=== PATIENT | female | born 1950 | race Caucasian/White ===

== ENCOUNTER 2023-11-22 16:31 | Emergency (ER) | payer MEDICARE, OTHER, SELFPAY ==
--- NOTE | ~2023-11-22 | CT_ITS ---
EXAMINATION: CT CERVICAL SPINE WITHOUT CONTRAST CLINICAL INFORMATION: Fall COMPARISON: None available. TECHNIQUE: Axial images through the cervical spine without IV contrast. Sagittal and coronal reconstructions on the technologist workstation This CT examination was performed using dose optimization techniques as appropriate, variously including the following: *Automated exposure control *Adjustment of mA and/or kV according to patient size (this includes techniques or standardized protocols for targeted exams where dose is matched to indication/reason for exam; i.e. extremities or head) *Use of iterative reconstruction technique DLP: 218 mGy-cm FINDINGS: Bone alignment is normal. No fracture or dislocation. Degenerative spondylosis and degenerative disc disease from C3-C4 to C7 T1. Bilateral facet arthritis. Prevertebral soft tissues are normal. Visualized lung bases are clear. CT/CT cervical spine wo IV con IMPRESSION: Degenerative changes. No fracture or dislocation. Fleischner guidelines were followed.
--- NOTE | ~2023-11-22 | CT_ITS ---
EXAMINATION: CT HEAD WITHOUT CONTRAST CLINICAL INFORMATION: Fall with frontal head strike. COMPARISON: None available. TECHNIQUE: Contiguous axial imaging was performed from the skull base to vertex without intravenous administration of contrast. This CT examination was performed using dose optimization techniques as appropriate, variously including the following: *Automated exposure control *Adjustment of mA and/or kV according to patient size (this includes techniques or standardized protocols for targeted exams where dose is matched to indication/reason for exam; i.e. extremities or head) *Use of iterative reconstruction technique DLP: 592 mGy-cm FINDINGS: There is no intracranial hemorrhage. There is no evidence of acute/subacute cerebral or cerebellar infarction. There is no midline shift or mass effect. No extra-axial fluid collection. No hydrocephalus. The right ocular lens is surgically absent. The orbits are otherwise unremarkable. The calvarium is intact. The visualized paranasal sinuses and mastoid air cells are well aerated. CT/CT head/brain wo IV con IMPRESSION: No acute intracranial pathology.
--- NOTE | ~2023-11-22 | CT_ITS ---
EXAMINATION: CT FACIAL BONES WITHOUT CONTRAST CLINICAL INFORMATION: Fall with face strike. COMPARISON: None available. TECHNIQUE: Computed tomography of the facial bones was performed without contrast. This CT examination was performed using dose optimization techniques as appropriate, variously including the following: *Automated exposure control *Adjustment of mA and/or kV according to patient size (this includes techniques or standardized protocols for targeted exams where dose is matched to indication/reason for exam; i.e. extremities or head) *Use of iterative reconstruction technique DLP: 276 mGy-cm FINDINGS: There is no facial bone fracture. The paranasal sinuses are well aerated. The visualized calvarium is intact. Mastoid air cells are clear. The right ocular lens is surgically absent. The orbits are otherwise within normal limits. Visualized brain parenchyma is normal in appearance. There is a right frontal scalp hematoma. CT/CT facial bones wo IV con IMPRESSION: No facial bone fracture. Right frontal scalp hematoma.
[2023-11-22 16:55] VITALS: BP 146/89; PULSE 64; RESP 18; TEMP 37; O2SAT 96; BMI 36.1
--- NOTE | 2023-11-22 16:56 | ED_ITS ---
HPI - General Adult General Chief complaint: Fall Stated complaint: Hematoma to head/Bump into wall Time Seen by Provider: 11/22/23 18:14 Source: patient and family () Mode of arrival: ambulatory Limitations: no limitations History of Present Illness HPI narrative: 73-year-old female with no significant pmhx presents to the ED today for evaluation scalp hematoma s/p mechanical fall down 2 steps at home prior to arrival. Patient states she was walking down her stairs with a bag full of groceries when she missed the last step causing her to fall into a wall. Reports hitting the front right side of her head on the wall. Denies LOC. Denies anticoagulation. Her only complaint in ED is head pain and pain to the muscles around her neck. Did not take any [id number] pain medication prior to arrival. Denies dizziness, N/V, vision changes, or pain with eye movements. Related Data Allergies Allergy/AdvReac Type Severity Reaction Status Date / Time NSAIDS (Non-Steroidal AdvReac Unknown Verified 11/22/23 16:58 Anti-Inflamma Review of Systems Review of Systems: Constitutional: No fever, chills, fatigue, night sweats, weight changes ENT/Mouth: No ear pain, hearing loss, nasal congestion, sinus pain, rhinorrhea, sore throat Eyes: No eye pain, swelling, redness, vision changes, discharge Cardio: No chest pain, palpitations, MORA, orthopnea, peripheral edema Pulm: No SOB, cough, sputum, wheezing, dyspnea, hemoptysis GI: No nausea, vomiting, hematemesis, abdominal pain, diarrhea, constipation, hematochezia, melena : No irregular bleeding, dysuria, frequency, urgency, hesitancy, hematuria, flank pain, urinary flow changes, urinary incontinence or retention MSK: No back pain, neck pain, joint pain, myalgias Skin: No lesions, rashes Neuro: No weakness, numbness, paresthesias, LOC, dizziness, +headache All other systems reviewed and are negative. [facility] Past Medical History Attestation statement: The following information was validated with the patient. Source: old records reviewed and nursing notes reviewed Social History Social History Advance Directives: No Advance Directives Information Provided: No Physical Exam ED Vital Signs: Vital Signs - 24 hr 11/22/23 16:55 11/22/23 18:14 Temperature 98.6 F 98.8 F Pulse Rate 64 76 Respiratory Rate 18 18 Blood Pressure 146/89 H 133/84 Pulse Oximetry 96 98 Oxygen Delivery Method Room Air Room Air BMI result Body Mass Index 36.1 Vital signs WNL Const General: cooperative, healthy appearing, comfortable and no acute distress Orientation/consciousness: patient oriented x3 Limitations: no limitations HENMT Other: + right frontal scalp hematoma. Ecchymosis to lateral aspect of right periorbital region. no conjunctival hemorrhage. + no palpable skull fracture + bilateral EOMs intact without entrapment or pain + PERRLA Head: No Bell's sign and No raccoon eyes Eyes Conjunctivae: conjunctivae normal Sclerae: sclerae normal Pupils: Equal, round and reactive pupils present EOM: EOMs intact bilaterally Neck Other: + no midline cervical spinous tenderness or step-off deformity + cervical paraspinal muscle tenderness to palpation, full ROM intact. Neck: Yes normal visual inspection Resp Effort & Inspection: normal respiratory effort Auscultation: clear to auscultation bilaterally Cardio Rate: regular rate Rhythm: regular rhythm GI Inspection: Yes normal to inspection and No abdominal wall ecchymosis Back/Spine/Pelvis Other: + no midline spinous tenderness or step-off deformity. No paraspinal muscle tenderness to palpation. Skin General skin exam: no rashes or lesions noted Neuro Other: Strength 5/5 intact throughout.?No saddle anesthesia.?Sensation intact to light touch.?Neurovascular intact distally.? General: patient oriented x3 and gait normal Cranial nerves: Yes Equal, round and reactive pupils present Gait exam (Neuro): Normal gait present Motor exam (neuro): Pronator motor function not present and no tremor noted Pupils: Normal pupillary reactivity/response: bilateral Extrem General: Yes normal to inspection Course Course Course Narrative: RME:?73 yo female here for evaluation of hematoma to forehead and around right eye s/p fall after missing the last step while going down the stairs just [employer]. +headstrike on wall. +pain to muscles around neck. not on AC. EOMs intact without entrapment or pain. PERRLA. exam nonfocal. imaging ordered. Full HPI, ROS and PE to be performed by the primary ED provider. Reevaluation(s) Reevaluation #1: 0801-- CT head/brain does not demonstrate acute skull fracture or bleed. CT facial bones does not demonstrate fracture. CT cervical spine does not demonstrate fracture however shows chronic degenerative changes. Discussed results with patient. Discussed worrisome signs symptoms of when to return to the ED. Advised to ice hematoma. She has remained stable throughout visit today. All questions answered at this time. Patient is agreeable disposition and stable for discharge. Medical Decision Making Medical Decision Making MDM Narrative: 73-year-old female with no significant pmhx presents to the ED today for evaluation scalp hematoma s/p mechanical fall down 2 steps at home prior to arrival. Patient initially hypertensive to 146/89. Now normotensive. Vitals WNL. Patient is nontoxic-appearing and in no acute distress. On exam, there is a right frontal scalp hematoma and ecchymosis to lateral aspect of right periorbital region. No conjunctival hemorrhage. No palpable skull fracture Bilateral EOMs intact without entrapment or pain. PERRLA. Exam nonfocal. AOX3. Ambulating with steady gait. Clinical concern for a scalp hematoma, ICH, msk sprain/ strain. Unlikely skull fracture, cervical spine fracture or subluxation, CVA/TIA, dissection. Imaging ordered. Plan for review and re-evaluation. Differential Diagnosis Differential Diagnoses: The differential diagnosis associated with the presentation includes as above. Admission/Observation Not indicated Independent Interpretation I performed an independent interpretation of an: CT Scan Interpretation: I have personally reviewed head/brain CT and agree with radiologist's interpretation. I have personally reviewed cervical spine CT and agree with radiologist's interpretation. Personally reviewed facial bone CT and agree with radiologist's interpretation. Radiology Impression Discussion of test interpretation with radiology: I have reviewed the radiologist's reading. Radiologist Impression: CT head/brain wo IV con IMPRESSION: No acute intracranial pathology CT facial bones wo IV con IMPRESSION: No facial bone fracture. Right frontal scalp hematoma. CT cervical spine wo IV con IMPRESSION: Degenerative changes. No fracture or dislocation. Fleischner guidelines were followed. Independent Historian Clinical information obtained from an independent historian. History obtained from or confirmed by: Spouse () Prescription Management I considered prescription management with: Pain Medication Discharge Plan Discharge Clinical Impression: Hematoma of frontal scalp, Fall Patient Disposition: Home, Self-Care Instructions: Contusion in Adults (ED), Scalp Contusion in Adults (ED), Fall Prevention (ED) Additional Instructions: CT of your head/brain does not demonstrate acute bleed or skull fracture. CT of your neck does not demonstrate fracture or subluxation. it does show tube coverer joshua degenerative changes. CT of your facial bones does not demonstrate acute fracture however does show right frontal scalp hematoma. This hematoma may take up to a week to resolve. Please apply ice multiple times a day for 20 minutes at a time to help with swelling. You may take Tylenol as needed for pain. Follow-up with your PCP as needed. If symptoms persist or worsen, you become confused, began vomiting, please return to the ED. In the case of an emergency call 911. Referrals: Physician,Unknown J [Physician] - Interventions: ED Discharge Assessment Last Done: 11/22/23 18:26 Discharge Date/Time: 11/22/23 18:27
[2023-11-22 18:14] VITALS: BP 133/84; PULSE 76; RESP 18; TEMP 37.1; O2SAT 98
== END 2023-11-22 18:27 | disposition home or self-care (01) ==
PROVIDERS: Emergency Provider Emergency Medicine
DX: S00.03XA Contusion of scalp, initial encounter (principal); R51.9 Headache, unspecified; M54.2 Cervicalgia; W10.9XXA Fall (on) (from) unspecified stairs and steps, initial encounter; Y93.9 Activity, unspecified; Y92.9 Unspecified place or not applicable; Y99.8 Other external cause status
CPT/HCPCS: 70450; 70486; 72125; 99282; 99284

== ENCOUNTER 2024-08-30 09:16 | Emergency (ER) | payer MEDICARE, OTHER, SELFPAY ==
--- NOTE | ~2024-08-30 | US_ITS ---
EXAMINATION: RIGHT LOWER EXTREMITY DEEP VENOUS ULTRASOUND CLINICAL INFORMATION: Right lower extremity pain and swelling. COMPARISON: None. TECHNIQUE: Duplex Doppler imaging with compression maneuvers were performed of the right lower extremity deep venous system. FINDINGS: The visualized common femoral, femoral and popliteal veins demonstrate normal compressibility and color flow without evidence of venous thrombosis. Visualized portions of the calf veins demonstrate normal color fill-in suggesting patency. There is no evidence of a Smith's cyst. US/US venous duplex LE RT IMPRESSION: No evidence of deep venous thrombosis involving the right lower extremity. Electronically signed by: Teodoro Hartley MD 08/30/2024 10:50 AM [facility]
--- NOTE | ~2024-08-30 | XR_ITS ---
EXAMINATION: XR KNEE, RIGHT CLINICAL INFORMATION: Rt knee pain COMPARISON: None available. TECHNIQUE: Frontal and lateral views of the right knee. FINDINGS: Medial compartment osteoarthrosis is present with joint space narrowing, subchondral sclerosis and osteophyte formation. There is a small suprapatellar effusion. No acute fracture or subluxation is detected. XR/XR knee RT 2V IMPRESSION: Medial compartment osteoarthrosis of the right knee. Small suprapatellar effusion. No acute fracture or subluxation. Electronically signed by: Jl Lin MD 08/30/2024 11:57 AM EST
[2024-08-30 09:36] VITALS: BP 163/82; PULSE 68; RESP 19; TEMP 37; O2SAT 96; BMI 30.1
--- NOTE | 2024-08-30 09:54 | ED_ITS ---
HPI - General Adult General Chief complaint: Extremity Injury, Lower Stated complaint: r leg pain behind knee Time Seen by Provider: 08/30/24 09:41 Source: patient Mode of arrival: ambulatory Limitations: no limitations History of Present Illness ED Provider: LUZ MARIA Edmond HPI narrative: 74 year old female hx of dvt and bakers cyst presents w/ right leg soreness and aching pain has been going on for a day and a half. She awoke like this . Reports pain is present constantly. No a/c trauma. No recent travel, non smoker, not on hormone therapy. Denies fevers, chills, cp, sob, nausea, vomiting, abd pain, headache, vision changes. Related Data Previous Rx's ?Medication ?Instructions ?Recorded acetaminophen 325 mg capsule 325 mg PO Q4H PRN pain #30 caps 08/30/24 (Tylenol) prednisone 20 mg tablet 20 mg PO DAILY 5 days #5 tabs 08/30/24 Allergies Allergy/AdvReac Type Severity Reaction Status Date / Time aspirin [ASA] Allergy Hives Verified 08/30/24 09:39 NSAIDS (Non-Steroidal AdvReac Unknown Verified 08/30/24 09:38 Anti-Inflamma Review of Systems 2 Review of Systems: Yes all other systems are reviewed and are negative [facility] Past Medical History Attestation statement: The following information was validated with the patient. Source: old records reviewed and nursing notes reviewed Social History Social History Advance Directives: No Advance Directives Information Provided: No Do you have a plan to hurt others: No Plan Physical Exam ED Vital Signs: Vital Signs - 24 hr 08/30/24 09:36 Temperature 98.6 F Pulse Rate 68 Respiratory Rate 19 Blood Pressure 163/82 H Pulse Oximetry 96 BMI result Body Mass Index 30.1 vss Appearance: Alert.? Oriented X3.? No acute distress.? Head: Normocephalic, atraumatic, no step-offs or deformities Eyes: Pupils equal, round and reactive to light.? CVS: Normal heart rate and rhythm.? Pulses normal.? Respiratory: No respiratory distress.? Breath sounds normal.? Abdomen: Soft and nontender.? Skin: Skin warm and dry.? Normal skin color.? Normal skin turgor.? Extremities: No lower extremity edema.? No calf ttp. 5/5 strength to bilateral upper and lower extremities 2+ DP,AT,PT pulses equal and b/l. w/ TTP to the lateral aspect of knee and posterior aspect of knee. Back: No midline tenderness, no C-spine tenderness, full range of motion, no CVA tenderness bilaterally Neuro: Oriented X 3.? No motor deficit.? No sensory deficit. CN 2-12 intact Course Reevaluation(s) Reevaluation #1: Patient's DVT steady with no DVT in the right lower extremity. Palpable pulses making arterial occlusion less likely. X-ray of the right knee ordered. Time: 11:01 Reevaluation #2: XR/XR knee RT 2V IMPRESSION: Medial compartment osteoarthrosis of the right knee. Small suprapatellar effusion. No acute fracture or subluxation. Plan low dose prednsione, tylenol, ortho follow up info. No signs of septic joint, threat to limb, nv compromise. Irvin wrap applied Advised to return w/ new or worsening sx. Medical Decision Making Medical Decision Making [facility] Narrative: 0957 74 year old female presents w/ R leg pain PE w/ TTP to the lateral aspect of knee and posterior aspect of knee. Normal pulses. Hx and pe concerning for bakers cyst. Less likely DVT, arterial occlusion, threat to limb. Plan- labs, imaging/ Differential Diagnosis Differential Diagnoses: The differential diagnosis associated with the presentation includes (Hx and pe concerning for bakers cyst. Less likely DVT, arterial occlusion, threat to limb.) Admission/Observation Consideration of admission/observation: Escalation of care including admission/observation considered Lab Data [facility] Lab Attestation statement: I reviewed the patient's lab results. 08/30/24 10:52 08/30/24 10:52 Labs: Lab Results 08/30/24 Range/Units 10:52 WBC 10.4 (4.8-10.8) X10*3/uL RBC 4.87 (4.20-5.50) X10*6/uL Hgb 14.2 (12.0-16.0) g/dl Hct 41.5 (37.0-47.0) % MCV 85.2 (80.0-98.0) fL MCH 29.2 (27.0-33.0) pg MCHC 34.2 (31.0-35.0) g/dl RDW 12.4 (11.0-16.0) % Plt Count 263 (160-400) X10*3/uL MPV 8.5 L (9.4-12.3) fL Immature Gran % (Auto) 0.3 (0.0-0.4) % Neut % (Auto) 63.3 (45-73) % Lymph % (Auto) 27.0 (20-40) % [place] % (Auto) 7.4 (2-11) % Eos % (Auto) 1.4 (0-4) % Baso % (Auto) 0.6 (0-2) % Lymph # (Auto) 2.8 (1.2-4.9) X10*3/uL [place] # (Auto) 0.8 (0.1-1.2) X10*3/uL Eos # (Auto) 0.2 (0.0-0.4) X10*3/uL Baso # (Auto) 0.1 (0.0-0.2) X10*3/uL Abs Immat Gran (auto) 0.03 (0.00-0.03) X10*3/uL Absolute Neuts (auto) 6.6 (2.0-8.3) x10*3/uL Absolute Nucleated RBC 0.000 (0.0-0.012) X10*3/uL Nucleated RBC % (auto) 0.0 (0.0-0.2) /100WBC PT 11.4 (10.9-12.4) SEC INR 1.0 (0.9-1.1) Sodium 141 (135-145) mmol/L Potassium 4.1 (3.3-5.1) mmol/L Chloride 105 (96-108) mmol/L Carbon Dioxide 25 (22-29) mmol/L Anion Gap 15 (12-20) BUN 14 (9-16) mg/dL Creatinine 0.81 (0.5-1.4) mg/dL Estim Creat Clear Calc 53.9 Estimated GFR > 60 Random Glucose 112 (60-115) mg/dL Calcium 9.5 (8.4-10.2) mg/dL Total Bilirubin 0.3 (0.0-1.0) mg/dL AST 26 (5-31) U/L ALT 31 (0-31) U/L Alkaline Phosphatase 86 (39-117) U/L Total Protein 7.3 (6.5-8.0) g/dL Albumin 4.3 (3.5-5.0) g/dL Independent Interpretation I performed an independent interpretation of an: Ultrasound ( US/US venous duplex LE RT IMPRESSION: No evidence of deep venous thrombosis involving the right lower extremity. ) Radiology Impression Discussion of test interpretation with radiology: I have reviewed the radiologist's reading. External Record Review External record reviewed: Office record and Outpatient record Chronic Conditions Patient?s care impacted by: Other (DVT, bakers cyst ) Critical Care Time Critical Care Time Critical Care Time: No Discharge Plan Discharge Clinical Impression: Knee pain Patient Disposition: Home, Self-Care Additional Instructions: Take your medications as prescribed. If you were prescribed antibiotics today, it is important that you take your medication to their entirety, do not skip any doses, do not finish them early. Follow-up with your primary care provider this week. Return to the emergency department with new or worsening symptoms. In case of emergency call 911 XR/XR knee RT 2V IMPRESSION: Medial compartment osteoarthrosis of the right knee. Small suprapatellar effusion. No acute fracture or subluxation. Prescriptions: New prednisone 20 mg tablet 20 mg PO DAILY 5 Days Qty: 5 0RF acetaminophen [Tylenol] 325 mg capsule 325 mg PO Q4H PRN (Reason: pain) Qty: 30 0RF Referrals: [facility] [Provider Group] - 2 days Physician,Unknown J [Primary Care Provider] - 2 days Print Language: Amharic
[2024-08-30 10:57] LABS: MANUAL DIFF FLAG NO
[2024-08-30 10:59] LABS: Basophils Absolute Auto 0.1 X10*3/uL (0.0-0.2); Basophils Percent Auto 0.6 % (0-2); Eosinophils Absolute Auto 0.2 X10*3/uL (0.0-0.4); Eosinophils Percent Auto 1.4 % (0-4); Hematocrit 41.5 % (37.0-47.0); Hemoglobin 14.2 g/dl (12.0-16.0); Imm Gran Abs Auto 0.03 X10*3/uL (0.00-0.03); Imm Gran Pct Auto 0.3 % (0.0-0.4); Lymphocytes Absolute Auto 2.8 X10*3/uL (1.2-4.9); Mean Corpuscular HGB Conc 34.2 g/dl (31.0-35.0); Mean Corpuscular Hemoglobin 29.2 pg (27.0-33.0); Mean Corpuscular Volume 85.2 fL (80.0-98.0); Mean Platelet Volume 8.5 fL (9.4-12.3); Monocytes Absolute Auto 0.8 X10*3/uL (0.1-1.2); Monocytes Percent Auto 7.4 % (2-11); Neutrophils Absolute Auto 6.6 x10*3/uL (2.0-8.3); Neutrophils Percent Auto 63.3 % (45-73); Platelet Count 263 X10*3/uL (160-400); Red Blood Count 4.87 X10*6/uL (4.20-5.50); Red Cell Distribution Width 12.4 % (11.0-16.0); White Blood Count 10.4 X10*3/uL (4.8-10.8)
[2024-08-30 11:08] LABS: Prothrombin Time 11.4 SEC (10.9-12.4)
[2024-08-30 11:11] LABS: Alanine Aminotransferase 31 U/L (0-31); Albumin Level 4.3 g/dL (3.5-5.0); Alkaline Phosphatase 86 U/L (39-117); Anion Gap 15 (12-20); Aspartate Amino Transferase 26 U/L (5-31); Bilirubin Total 0.3 mg/dL (0.0-1.0); Blood Urea Nitrogen 14 mg/dL (9-16); Calcium 9.5 mg/dL (8.4-10.2); Carbon Dioxide 25 mmol/L (22-29); Chloride 105 mmol/L (96-108); Creatinine Clr Calc Pharmacy 53.9; Estimated Glomerular Filt Rate > 60; Glucose Random 112 mg/dL (60-115); Potassium 4.1 mmol/L (3.3-5.1); Sodium 141 mmol/L (135-145); Total Protein 7.3 g/dL (6.5-8.0)
[2024-08-30 12:12] VITALS: BP 163/82; PULSE 68; RESP 19; TEMP 37; O2SAT 96
== END 2024-08-30 12:19 | disposition home or self-care (01) ==
PROVIDERS: Physician Assistant; Emergency Provider Emergency Medicine
DX: M25.561 Pain in right knee (principal); R60.0 Localized edema; Z79.899 Other long term (current) drug therapy
CPT/HCPCS: 36415; 73560; 80053; 85025; 85610; 93971; 99282; 99283